=== PATIENT | male | born 1960 | race Caucasian/White ===

== ENCOUNTER 2020-10-07 07:36 | Emergency (ER) | payer MEDICAID ==
[~2020-10-07] VITALS: Ht 182.9 cm; Wt 81.8 kg
[2020-10-07] MEDS ORDERED: TETanus/Pertussis (Acell)/Diphther VAC/PF (Tdap-Adult) 0.5ml syringe IMVAC ONE (08:10)
[2020-10-07] MEDS ORDERED: LIDOcaine 1% 30ml preserv. free vial IJ ONE (08:10)
[2020-10-07] MEDS ORDERED: vancomycin/NS 1 GM ADD-VANTAGE 250 ML IV ONE (09:50)
[2020-10-07] MEDS ORDERED: CEPH-585 PO (10:53)
[2020-10-07] MEDS ORDERED: ACET-3068 PO (10:53)
[2020-10-07] MEDS ORDERED: ibuprofen 200mg tablet PO ONE (11:05)
[2020-10-07 11:30] VITALS: BP 156/110
== END 2020-10-07 12:23 | disposition home or self-care (01) ==
LOC: ER 07:36
DX: L03.011 Cellulitis of right finger (principal); F17.200 Nicotine dependence, unspecified, uncomplicated; F12.90 Cannabis use, unspecified, uncomplicated; F15.90 Other stimulant use, unspecified, uncomplicated; Z20.3 Contact with and (suspected) exposure to rabies; Z72.89 Other problems related to lifestyle; Z98.890 Other specified postprocedural states; Z88.1 Allergy status to other antibiotic agents; Z79.2 Long term (current) use of antibiotics
CPT/HCPCS: 26011; 73140; 90471; 90715; 96365; 99285; J3370